=== PATIENT | male | born 1970 | race Caucasian/White ===

== ENCOUNTER 2022-09-06 08:50 | Outpatient (CLI) | payer BC, SELFPAY ==
--- NOTE | 2022-09-06 10:15 | W.ANESCHARGE ---
Anesthesia Charges Start Date/Time Anesthesia Start Date: 09/06/22 Anesthesia Start Time: 09:45 Stop Date/Time Anesthesia Stop Date: 09/06/22 Anesthesia Stop Time: 10:09 Summary Emergency: No
--- NOTE | 2022-09-06 10:59 | W.ANESCHARGE ---
Anesthesia Charges Start Date/Time Anesthesia Start Date: 09/06/22 Anesthesia Start Time: 09:45 Stop Date/Time Anesthesia Stop Date: 09/06/22 Anesthesia Stop Time: 10:09 Summary Emergency: No
== END 2022-09-06 08:51 | disposition home or self-care (01) ==
LOC: OP CLINIC 08:55
PROVIDERS: PCP Physician Assistant Medical; Visit Provider Internal Medicine Gastroenterology
DX: R10.13 Epigastric pain (principal); K21.00 Gastro-esophageal reflux disease with esophagitis, without bleeding; K22.89 Other specified disease of esophagus; K31.89 Other diseases of stomach and duodenum; J02.9 Acute pharyngitis, unspecified
CPT/HCPCS: 00731; 43239; 88305; 88341; 88342; 88360; J2704